=== PATIENT | female | born 1995 | race Two or more races ===

== ENCOUNTER 2019-12-17 05:17 | Inpatient (IN) | payer OTHER ==
[~2019-12-17] VITALS: Ht 160 cm; Wt 86.6 kg
[2019-12-17] MEDS ORDERED: IRON325 MG PO (07:03)
== END 2019-12-19 12:30 | disposition home or self-care (01) | DRG 807 ==
LOC: OB/GYN 05:17 → LDR 05:17 → OB/GYN 13:31
PROVIDERS: ADMIT Obstetrics & Gynecology; ATTEND Obstetrics & Gynecology
PROC: 10E0XZZ Delivery of Products of Conception, External Approach (ICD-10-PCS; principal; 2019-12-17)
PROC: 0UQMXZZ Repair Vulva, External Approach (ICD-10-PCS; 2019-12-17)
PROC: 3E0P7VZ Introduction of Hormone into Female Reproductive, Via Natural or Artificial Opening (ICD-10-PCS; 2019-12-17)
PROC: 3E033VJ Introduction of Other Hormone into Peripheral Vein, Percutaneous Approach (ICD-10-PCS; 2019-12-17)
PROC: 4A1HXCZ Monitoring of Products of Conception, Cardiac Rate, External Approach (ICD-10-PCS; 2019-12-17)
DX: O71.82 Other specified trauma to perineum and vulva (principal); Z37.0 Single live birth; O99.824 Streptococcus B carrier state complicating childbirth; Z3A.38 38 weeks gestation of pregnancy